=== PATIENT | female | born 1940 | race Caucasian/White ===

== ENCOUNTER 2017-11-04 09:34 | Outpatient (CLI) | payer OTHER ==
[~2017-11-04 09:34] MED LIST: CALTRATE 61 TAB.CHEW; CENTRUM SILVER1 TAB; CIPRO500 MG PO; FLAGYL500MG PO; NEURONTIN300 MG PO; PROBIOTIC1 EAC1; QUINAPRIL
== END 2017-11-04 11:19 | disposition home or self-care (01) ==
LOC: RAD 09:34
DX: M54.5 Low back pain (principal)

== ENCOUNTER 2017-11-05 11:02 | Outpatient (CLI) | payer OTHER | END 2017-11-05 12:00 | disposition home or self-care (01) | LOC: NUCLEAR 11:02 | DX: R60.1 Generalized edema (principal); I79.8 Other disorders of arteries, arterioles and capillaries in diseases classified elsewhere; I73.9 Peripheral vascular disease, unspecified ==

== ENCOUNTER 2017-11-08 14:45 | Outpatient (CLI) | payer OTHER | END 2017-11-08 16:00 | disposition home or self-care (01) | LOC: NUCLEAR 14:45 | DX: R60.1 Generalized edema (principal); I79.8 Other disorders of arteries, arterioles and capillaries in diseases classified elsewhere ==

== ENCOUNTER 2019-02-17 10:00 | Outpatient (CLI) | payer OTHER | END 2019-02-17 10:01 | disposition home or self-care (01) | LOC: NUCLEAR 10:00 | DX: R60.1 Generalized edema (principal); I79.8 Other disorders of arteries, arterioles and capillaries in diseases classified elsewhere ==

== ENCOUNTER 2019-02-18 09:49 | Outpatient (CLI) | payer OTHER | END 2019-02-18 09:52 | disposition home or self-care (01) | LOC: NUCLEAR 09:49 | DX: I73.9 Peripheral vascular disease, unspecified (principal) ==